=== PATIENT | male | born 1960 | race Caucasian/White ===

== ENCOUNTER 2023-01-18 08:32 | Emergency (ER) | payer OTHER, MEDICAID ==
[~2023-01-18] VITALS: Ht 170.2 cm; Wt 69.0 kg
[2023-01-18 09:51] VITALS: BP 137/77
== END 2023-01-18 09:53 | disposition home or self-care (01) ==
LOC: ER 09:12
DX: K13.70 Unspecified lesions of oral mucosa (principal); E11.9 Type 2 diabetes mellitus without complications; Z98.890 Other specified postprocedural states
CPT/HCPCS: 99281